=== PATIENT | female | born 1950 | race Hispanic/Latino ===

== ENCOUNTER 2023-07-09 01:08 | Observation (INO) | payer BC, OTHER ==
--- OUTSIDE RECORDS SUMMARY | 2023-07-09 01:11 | XMS REPORT | Continuity of Care Document ---
Author Name Unknown Address [address] [facility] [address] [place] [address] [facility] Address [address] [facility] [address] [place] [address] Care Team Providers Care Warehouse Puller Name Role Phone Rubia Pugh Primary Care Physician [phone] DOMENIC THOMAS Attending Clinician UnavailDR ARAMIS Canas Attending Clinician Unavailable MARLEEN FRANKLIN Attending Clinician Unavailable Rubia Pugh Attending Clinician [phone] RUBIA SANCHEZ Attending Clinician Unavailable LANA Attending Clinician Unavailab le Doctor Unassigned, [facility] Attending Clinician U DOMENIC [place] Admitting Clinician UnavailDR ARAMIS Canas Admitting Clinician Unavailable LANA Admitting Clinician Unavailab lundberg Payers Payer Name Policy Type Policy Number Effective Date Expirati on Date Source [facility] [id number] 2012 00:00:00 BCBS 2 [id number] 2020 00:00:00 Problems Condition Name Condition Details Condition Category Status Onset Date Resolution Date Last Treatment Date Treating Clinician Comments Source Encounter to establish care Encounter to establish care Disease Active 11-24 00:00: 00 [facility] Acute vaginitis Acute vaginitis Disease Active 11-24 00:00: 00 [facility] Essential hypertensi on Essential hypertensi on Disease Active 11-24 00:00: 00 [facility] Candidiasi s of vulva and vagina Candidiasi s of vulva and vagina Disease Active 11-24 00:00: 00 [facility] Allergies, Adverse Reactions, Alerts Allergy Name Allergy Type Status Severity Reaction(s) Onset Date Inactive Date Treating Clinician Comments Source NO KNOWN ALLERGIE S Drug Class Active [facility] Social History Social Habit Start Date Stop Date Quantity Comments Source Exposure to SARS-CoV-2 (event) 2021-11-14 00:00:00 2021-11-24 09:38:00 Not sure [facility] Alcohol intake 2021-11-24 00:00:00 2021-11-24 00:00:00 Ex-drinker (finding) [facility] Tobacco use and exposure 2020-11-17 00:00:00 2020-11-17 00:00:00 Former smokeless tobacco user [facility] Sex Assigned At 1950 00:00:00 1950 00:00:00 [facility] Smoking Status Start Date Stop Date Source Never smoked tobacco [facility] Medications Ordered Medication Name Filled Medication Name Start Date Stop Date Current Medication? Ordering Clinician Indication Dosage Frequency Signature (SIG) Comments Components Source LISINOPRIL 10 mg tablet 01-20 00:00: 00 Yes [id number] TAKE ONE (1) TABLET(S) BY MOUTH ONCE A DAY. [facility] HYDROcodone -ibuprofen (VICOPROFEN ) 7.5-200 mg per tablet 11-24 10:43: 51 11-24 00:00 :00 No 1{tbl} Take 1 Tab by mouth every 8 (eight) hours as needed. [facility] CIPROFLOXAC IN HCL (CIPRO ORAL) 11-24 10:43: 51 11-24 00:00 :00 No Take by mouth. [facility] ATORVASTATI N CALCIUM (ATORVASTAT IN ORAL) 11-24 09:54: 40 Yes Take by mouth. [facility] CODEINE PHOSPHATE/G UAIFENESIN (CODEINE- AIFENESIN ORAL) 11-24 09:54: 40 Yes Take by mouth. [facility] ATORVASTATI N CALCIUM (ATORVASTAT IN ORAL) 11-24 09:54: 40 Yes Take by mouth. [facility] CODEINE PHOSPHATE/G UAIFENESIN (CODEINE- AIFENESIN ORAL) 11-24 09:54: 40 Yes Take by mouth. [facility] ATORVASTATI N CALCIUM (ATORVASTAT IN ORAL) 11-24 09:54: 40 Yes Take by mouth. [facility] CODEINE PHOSPHATE/G UAIFENESIN (CODEINE- AIFENESIN ORAL) 11-24 09:54: 40 Yes Take by mouth. [facility] ATORVASTATI N CALCIUM (ATORVASTAT IN ORAL) 11-24 09:54: 40 Yes Take by mouth. [facility] CODEINE PHOSPHATE/G UAIFENESIN (CODEINE- AIFENESIN ORAL) 11-24 09:54: 40 Yes Take by mouth. [facility] ibuprofen 800 mg tablet 11-24 09:54: 30 Yes 800mg Take 800 mg by mouth. [facility] ACETAMINOPH EN (TYLENOL ARTHRITIS ORAL) 11-24 09:54: 30 Yes Take by mouth. [facility] ibuprofen 800 mg tablet 11-24 09:54: 30 Yes 800mg Take 800 mg by mouth. [facility] ACETAMINOPH EN (TYLENOL ARTHRITIS ORAL) 11-24 09:54: 30 Yes Take by mouth. [facility] ibuprofen 800 mg tablet 11-24 09:54: 30 Yes 800mg Take 800 mg by mouth. [facility] ACETAMINOPH EN (TYLENOL ARTHRITIS ORAL) 0 11-24 09:54: 30 Yes Take by mouth. [facility] ibuprofen 800 mg tablet 11-24 09:54: 30 Yes 800mg Take 800 mg by mouth. [facility] ACETAMINOPH EN (TYLENOL ARTHRITIS ORAL) 11-24 09:54: 30 Yes Take by mouth. [facility] lisinopriL 10 mg tablet 11-24 00:00: 00 Yes [id number] 10mg Take 1 tablet by mouth daily. [facility] fluconazole 150 mg tablet 11-24 00:00: 00 Yes [id number] 150mg Take 1 tablet by mouth every 72 (seventy-t wo) hours. [facility] lisinopriL 10 mg tablet 11-24 00:00: 00 Yes [id number] 10mg Take 1 tablet by mouth daily. [facility] fluconazole 150 mg tablet 11-24 00:00: 00 Yes [id number] 150mg Take 1 tablet by mouth every 72 (seventy-t wo) hours. [facility] lisinopriL 10 mg tablet 11-24 00:00: 00 Yes [id number] 10mg Take 1 tablet by mouth daily. [facility] fluconazole 150 mg tablet 11-24 00:00: 00 Yes [id number] 150mg Take 1 tablet by mouth every 72 (seventy-t wo) hours. [facility] fluconazole 150 mg tablet 11-24 00:00: 00 Yes [id number] 150mg Take 1 tablet by mouth every 72 (seventy-t wo) hours. [facility] lisinopriL 10 mg tablet 11-24 00:00: 00 01-20 00:00 :00 No [id number] 10mg Take 1 tablet by mouth daily. [facility] lisinopriL 10 mg tablet 11-24 00:00: 00 11-24 00:00 :00 No [id number] 10mg Take 1 tablet by mouth daily for 60 days. [facility] fluconazole 150 mg tablet 11-24 00:00: 00 11-24 00:00 :00 No [id number] 150mg Take 1 tablet by mouth every 72 (seventy-t wo) hours for 3 doses. [facility] amoxicillin (TRIMOX) 500 mg capsule 11-18 14:39: 03 Yes 500mg Take 500 mg by mouth 3 (three) times daily. [facility] amoxicillin (TRIMOX) 500 mg capsule 11-18 14:39: 03 Yes 500mg Take 500 mg by mouth 3 (three) times daily. [facility] amoxicillin (TRIMOX) 500 mg capsule 11-18 14:39: 03 Yes 500mg Take 500 mg by mouth 3 (three) times daily. [facility] amoxicillin (TRIMOX) 500 mg capsule 11-18 14:39: 03 Yes 500mg Take 500 mg by mouth 3 (three) times daily. [facility] methylPREDN ISolone (MEDROL, JORGE,) 4 mg tablets 03-15 00:00: 00 Yes 84mg Take 21 tablets by mouth SEE-INSTRU CTIONS. follow package directions [facility] methylPREDN ISolone (MEDROL, JORGE,) 4 mg tablets 03-15 00:00: 00 Yes 84mg Take 21 tablets by mouth SEE-INSTRU CTIONS. follow package directions [facility] methylPREDN ISolone (MEDROL, JORGE,) 4 mg tablets 03-15 00:00: 00 Yes 84mg Take 21 tablets by mouth SEE-INSTRU CTIONS. follow package directions [facility] methylPREDN ISolone (MEDROL, JORGE,) 4 mg tablets 03-15 00:00: 00 Yes 84mg Take 21 tablets by mouth SEE-INSTRU CTIONS. follow package directions [facility] albuterol 90 mcg/actuati on inhaler 11-15 00:00: 00 Yes 2{puff} Inhale 2 Puffs every 4 (four) hours as needed for Wheezing or Shortness of Breath. [facility] codeine-gua ifenesin 10-100 mg/5 mL solution 11-15 00:00: 00 Yes 5mL Take 5 mL by mouth every 6 (six) hours as needed for Cough. [facility] albuterol 90 mcg/actuati on inhaler 11-15 00:00: 00 Yes 2{puff} Inhale 2 Puffs every 4 (four) hours as needed for Wheezing or Shortness of Breath. [facility] codeine-gua ifenesin 10-100 mg/5 mL solution 11-15 00:00: 00 Yes 5mL Take 5 mL by mouth every 6 (six) hours as needed for Cough. [facility] albuterol 90 mcg/actuati on inhaler 11-15 00:00: 00 Yes 2{puff} Inhale 2 Puffs every 4 (four) hours as needed for Wheezing or Shortness of Breath. [facility] codeine-gua ifenesin 10-100 mg/5 mL solution 11-15 00:00: 00 Yes 5mL Take 5 mL by mouth every 6 (six) hours as needed for Cough. [facility] albuterol 90 mcg/actuati on inhaler 11-15 00:00: 00 Yes 2{puff} Inhale 2 Puffs every 4 (four) hours as needed for Wheezing or Shortness of Breath. [facility] codeine-gua ifenesin 10-100 mg/5 mL solution 11-15 00:00: 00 Yes 5mL Take 5 mL by mouth every 6 (six) hours as needed for Cough. [facility] azithromyci n 250 mg tablet 11-15 00:00: 00 11-24 00:00 :00 No 250mg Take 1 tablet by mouth SEE-INSTRU CTIONS. Take 500 mg day 1, then 250 mg days 2 to 5. [facility] meloxicam (MOBIC) 15 mg tablet 08-30 00:00: 00 Yes [id number] 9102 15mg Take 1 Tab by mouth daily. [facility] meloxicam (MOBIC) 15 mg tablet 08-30 00:00: 00 Yes [id number] 9102 15mg Take 1 Tab by mouth daily. [facility] meloxicam (MOBIC) 15 mg tablet 08-30 00:00: 00 Yes [id number] 9102 15mg Take 1 Tab by mouth daily. [facility] meloxicam (MOBIC) 15 mg tablet 08-30 00:00: 00 Yes [id number] 9102 15mg Take 1 Tab by mouth daily. [facility] Vital Signs Vital Name Observation Time Observation Value Comments Lilia parra Systolic blood pressure 2021-11-24 15:09:00 152 mm[Hg] [facility] Diastolic blood pressure 2021-11-24 15:09:00 83 mm[Hg] [place] [facility] Heart rate 2021-11-24 14:54:00 73 /min [facility] Body height 2021-11-24 14:54:00 152.4 cm [facility] Body weight 2021-11-24 14:54:00 104.237 kg [facility] BMI 2021-11-24 14:54:00 44.88 kg/m2 [facility] Oxygen saturation in Arterial blood by Pulse oximetry 2021-11-24 14:54:00 96 /min [facility] Encounters Start Date/Time End Date/Time Encounter Type Admission Type Attending Clinicians Care Facility Care Department Encounter ID Source 2021-04-18 19:11:58 Outpatient DOMENIC DELONG [facility] [id number] [facility] 2017-05-19 06:30:[address] [facility] [id number] [facility] 2023-02-02 00:00:00 2023-02-02 00:00:00 Outpatient MARLEEN FRANKLIN [id number] Saray Alvarez 2022-01-20 00:00:00 2022-01-20 00:00:00 Rubia Hansen [facility] [id number] [facility] 2021-12-29 11:00:00 2021-12-29 11:00:00 Outpatient RUBIA LINDER [facility] [id number] [facility] 2021-12-29 02:04:00 2021-12-29 02:04:00 Outpatient GALE MCELROY [facility] [id number] [facility] 2021-11-25 00:00:00 2021-11-25 00:00:00 Telephone Faiza Counts include 234 beds at the [facility] AME?[facility] [id number] [facility] 2021-11-24 10:00:00 2021-11-24 10:43:42 Outpatient R RUBIA SANCHEZ [facility] [id number] [facility] 2021-11-24 10:00:00 2021-11-24 10:43:42 Outpatient R RUBIA SANCHEZ [facility] [id number] [facility] 2021-11-24 10:00:00 2021-11-24 10:43:42 Office Visit Faiza Counts include 234 beds at the [facility] AME?[facility] [id number] [facility] 2021-11-24 00:00:00 2021-11-24 00:00:00 Telephone Faiza Counts include 234 beds at the [facility] AME?[facility] [id number] [facility] 2021-11-24 00:00:00 2021-11-24 00:00:00 Orders Only Doctor Unassigned, [facility] [id number] [facility] 2020-11-17 09:30:00 2020-11-17 09:30:00 Outpatient R DOMENIC THOMAS [facility] [id number] [facility] 2020-11-09 11:45:00 2020-11-09 11:45:00 Outpatient DOMENIC DELONG [facility] [id number] [facility]
[2023-07-09] MEDS ORDERED: ONDANSETRON 4 MG/2 ML VIAL IV PRN (01:37)
[2023-07-09] MEDS ORDERED: ACETAMINOPHEN 325 MG TABLET PO PRN (01:37)
--- NOTE | 2023-07-09 01:43 | P.HP ---
Certification for Inpatient Patient admitted to: Observation With expected LOS: <2 Midnights Practitioner: I am a practitioner with admitting privileges, knowledge of patient current condition, hospital course, and medical plan of care. Services: Services provided to patient in accordance with Admission requirements found in Title 42 Section 412.3 of the Code of Federal Regulations Patient History Date of Service: 07/09/23 Reason for admission: CHF exacerbation, NSTEMI. History of Present Illness: 73-year-old female patient with a history of prediabetes, hypertension, hyperl ipidemia who came to the emergency room at [facility] for episode of worsening shortness of breath. This been going on for 2 days with associated chest discomfort. Pain is rated 3 out of 10 in intensity nonradiating. She had workup that revealed moderately elevated troponin and features of congestive heart failure so she was transferred to [facility] for care. On arrival patient continued to verbalize some difficulty breathing but she denied overt leg swelling. She had PND and orthopnea symptoms. Chest discomfort was said to be moderate at 3-4 out of 10 in intensity. She was admitted for inpatient care and started on IV diuretic and labs were done. Troponin was found to be elevated at 4000 on initial troponin trend. Allergies No Known Drug Allergies Allergy (Unverified 09/01/20 13:42) Unknown Home Medications: Citalopram [Celexa*] 10 mg PO DAILY 11/12/14 Metformin ER [Glucophage ER*] 500 mg PO BID 11/12/14 lisinopriL [Prinivil*] 10 mg PO BID 11/12/14 Hydrocodone 7.5/APAP 325 [[place] 7.5/325 mg*] 1 tab PO Q4H PRN #50 tab 11/21/14 Rivaroxaban [Xarelto] 10 mg PO DAILY #10 tablet 11/21/14 - Past Medical/Surgical History Diabetic: Yes -: hypertension -: diabetes -: right knee replacement 2010 -: cholecystectomy -: hysterectomy -: arthroscopy left knee - Family History Father -: Stroke - Social History Alcohol use: No CD- Drugs: No Caffeine use: Yes Review of Systems General: Unremarkable Eyes: Unremarkable ENT: Unremarkable Respiratory: Shortness of Breath, SOB with Excertion Cardiovascular: Chest Pain, Orthopnea, Paroxysmal Noc. Dyspnea Gastrointestinal: Unremarkable Genitourinary: Unremarkable Musculoskeletal: Unremarkable Integumentary: Unremarkable Neurological: Unremarkable Lymphatics: Unremarkable Physical Examination - Physical Exam General: Alert, Oriented x3 HEENT: Atraumatic Neck: Supple Respiratory: Normal air movement Cardiovascular: Regular rate/rhythm, Normal S1 S2 Gastrointestinal: Soft and benign Musculoskeletal: No swelling Neurological: Normal speech, Normal strength at 5/5 x4 extr Assessment and Plan - Plan CHF exacerbation: Findings are concerning. Will obtain echocardiogram, start Lasix for diuresis and follow trend of volume status closely. Troponin trend to be continued for management of suspected ACS. Cardiology consultation placed NSTEMI: Troponin was elevated in outpatient hospital and repeat troponin was 4000 on repeat lab in the hospital. Heparin drip has been started for management of ACS. Continue aspirin therapy and as needed morphine for pain control. Will obtain echocardiogram and lipid panel to adjust thyroid lipid therapy as needed. Cardiology has been consulted for management recommendation. History of prediabetes: Will continue of metformin once plan of care for ACS has been finalized. Hypertension: will continue to monitor vital signs per unit protocol and continue antihypertensive medications. Prophylaxis: Heparin drip has been placed for ACS management. CODE STATUS: Full code. Disposition: We will treat suspected ACS and CHF exacerbation and she will be discharged once deemed clinically stable. - Advance Directives Does patient have a Living Will: No Does patient have a Durable POA for Healthcare: No
[2023-07-09] MEDS: FUROSEMIDE 20 MG/ 2ML VIAL IV SCH ×2 (04:22→09:04)
[2023-07-09] MEDS: HEPARIN/D5W 25,000 UNIT/500 ML BAG IV SCH (06:29)
[2023-07-09 08:10] VITALS: BMI 6158.3
[2023-07-09 08:11] LABS: Hematocrit 37.9 % (36.0-45.0); MCV 90.9 fL (80-100); MPV 8.4 fL (7.6-11.3); Platelets 233 thou/uL (152-406); RBC Red Blood Cell Count 4.18 M/uL (3.86-4.86)
[2023-07-09 08:35] LABS: Albumin 3.2 g/dL (3.4-5.0); Bilirubin Total 0.3 mg/dL (0.2-1.0); Magnesium 2.2 mg/dL (1.6-2.4); Potassium 4.1 mEq/L (3.5-5.1); Protein, Total 7.1 g/dL (6.4-8.2)
[2023-07-09] MEDS ORDERED: carvediloL 6.25 MG TAB PO SCH (09:00)
[2023-07-09] MEDS ORDERED: ENOXAPARIN 40 MG/0.4 ML SQ SCH (09:00)
[2023-07-09] MEDS: DULOXETINE 30 MG CAP PO SCH ×2 (09:03→20:23)
[2023-07-09] MEDS: ASPIRIN EC 81 MG TAB PO SCH (09:04)
--- NOTE | 2023-07-09 11:19 | P.PN ---
Date of Service: 07/09/23 Subjective: Pain significantly improved Reports very mild chest pain ROS: 10 point ROS as noted above, otherwise negative Physical exam GEN: Alert, oriented, NAD HEENT: Normal conjunctiva, sclera anicteric CV: Regular rate and rhythm, no edema Pulm: Nonlabored respirations on room air ABD: Soft, nontender, nondistended MSK: No joint tenderness Integumentary: No rashes Neuro: Normal speech, normal affect Vitals reviewed Problem List NSTEMI-suspected ACS Hypertension Prediabetes Plan NSTEMI-suspected ACS Initial troponin at outside hospital 205 Trended up peaking at 7878.7 EKG without STEMI criteria Case discussed with cardiology who recommends cardiac catheterization N.p.o. tonight in anticipation of heart catheterization to be performed 07/10 continue heparin drip, aspirin, statin, carvedilol Hypertension Continue carvedilol Prediabetes Obtain A1c level noncompliant with meds at home VTE: Heparin drip Code: full Dispo: 1 to 2 days Time Spent Managing Pts Care (In Minutes): 35
[2023-07-09] MEDS ORDERED: NA CHLORIDE 0.9% 1,000 ML ONE (13:24)
--- NOTE | 2023-07-09 14:12 | RAD REPORT ---
EXAM DESCRIPTION: CT - Head C Spine Cap Wo Con - 07/09/2023 1:58 pm CLINICAL HISTORY: Trauma, head and neck injury. Chest, abdomen and pelvis pain. PT FALL COMPARISON: No comparisons TECHNIQUE: CT head without contrast. CT cervical spine without contrast with coronal and sagittal reformatted images. CT chest, abdomen and pelvis with coronal and sagittal reformatted images of the spine. All CT scans are performed using dose optimization technique as appropriate and may include automated exposure control or mA/KV adjustment according to patient size. FINDINGS: CT HEAD WITHOUT CONTRAST: No intracranial hemorrhage, hydrocephalus or extra-axial fluid collection. No acute large vascular te rritory infarct. Darrel cisterna magna. The paranasal sinuses and mastoids are clear. The calvarium is intact. CT CERVICAL SPINE WITHOUT CONTRAST: No fracture or subluxation. The prevertebral soft tissues are normal in thickness.Multilevel degenerative changes are present in the spine. Carotid artery calcifications . CT CHEST, ABDOMEN, PELVIS: Thorax: Chest Wall: No abnormal mass Lungs: No acute abnormality. Pleura: No effusions or pneumothorax. Krista/Mediastinum: No lymphadenopathy. Aorta/Pulmonary Arteries: Unremarkable Heart: Normal size. Coronary artery calcifications. Abdomen/Pelvis: Liver: No acute abnormality or suspicious lesions. Biliary: Cholecystectomy Stomach: No significant focal abnormality. Duodenum: No significant focal abnormality. Pancreas: No significant abnormality. Spleen: No significant abnormality. Adrenal: No suspicious lesions. Kidney/ureter: No hydronephrosis. No renal calculi. Retroperitoneum: No retroperitoneal adenopathy. Vascular: No aneurysm. Atherosclerosis. Bowel: No significant focal abnormality. Peritoneum: No ascites or free air. Bladder: Grossly unremarkable. Reproductive: Hysterectomy. Bones: No acute fracture. Other: n/a IMPRESSION: Negative for acute traumatic findings.
[2023-07-09] MEDS ORDERED: CODEINE 30MG/APAP 300MG TAB PO PRN (14:35)
[2023-07-09] MEDS: NA CHLORIDE 0.9% 1,000 ML IV SCH (18:11)
[2023-07-09] MEDS ORDERED: ATORVASTATIN 40 MG TAB PO SCH (21:00)
[2023-07-10 02:27] LABS: Specific Gravity 1.015 (1.005-1.030); Urine Bacteria 20-50 /HPF (<20); Urine Bilirubin NEGATIVE (Negative); Urine Blood Negative (Negative); Urine Clarity Turbid (Clear); Urine Color Light-Yellow (Yellow); Urine Glucose NEGATIVE (Negative); Urine Mucus 1+ /HPF (None Seen); Urine Protein NEGATIVE (Negative); Urine RBC <5 /HPF (None Seen); Urine Urobilinogen Normal (Normal); Urine pH 5.5 (5.0-7.0)
[2023-07-10] MEDS ORDERED: VERAPAMIL HCL 10 MG/4 ML VIAL IV ONE (06:39)
[2023-07-10] MEDS ORDERED: LIDOCAINE 1% 20 ML MDV ONE (06:39)
[2023-07-10] MEDS ORDERED: HEPA 1000U/500MLS 2,000 UNIT/1,000 ML BAG IV ONE (06:39)
[2023-07-10] MEDS ORDERED: FENTANYL CITR 100 MCG/2 ML ONE (06:39)
[2023-07-10] MEDS ORDERED: HEPARIN 5000 UNIT/ML 1 ML VIAL ONE (06:40)
[2023-07-10] MEDS ORDERED: ATROPINE SULF 1 MG/10 ML SYR IV ONE (06:40)
[2023-07-10] MEDS ORDERED: HEPARIN 10,000 UNIT/10 ML VIAL IV ONE (06:40)
[2023-07-10] MEDS ORDERED: MIDAZOLAM HCL 2 MG/2 ML INJ ONE (06:40)
[2023-07-10] MEDS ORDERED: TICAGRELOR 90 MG TABLET PO ONE (06:40)
[2023-07-10] MEDS ORDERED: CLOPIDOGREL 75 MG TABLET ONE (06:41)
[2023-07-10] MEDS ORDERED: ASPIRIN 325 MG TAB ONE (06:41)
[2023-07-10] MEDS ORDERED: NITROGLYCERIN/D5W 25 MG/250 ML BTL IV ONE (06:42)
[2023-07-10] MEDS ORDERED: NA CHLORIDE 0.9% 500 ML ONE (06:43)
[2023-07-10 06:56] LABS: Absolute Lymphocytes (CBC) 3.5 K/uL (0.7-4.9); Hematocrit 36.9 % (36.0-45.0); Lymphocytes % 41.7 % (15.3-44.8); MCV 90.6 fL (80-100); Platelets 211 thou/uL (152-406); RBC Red Blood Cell Count 4.07 M/uL (3.86-4.86)
[2023-07-10 07:21] LABS: Albumin 2.8 g/dL (3.4-5.0); Bilirubin Total 0.4 mg/dL (0.2-1.0); Potassium 3.9 mEq/L (3.5-5.1); Protein, Total 6.3 g/dL (6.4-8.2)
[2023-07-10 07:23] LABS: Thyroid Stimulating Hormone 4.93 uIU/mL (0.358-3.740)
[2023-07-10] MEDS: ASPIRIN EC 81 MG TAB PO SCH (08:37)
[2023-07-10] MEDS: DULOXETINE 30 MG CAP PO SCH (08:37)
[2023-07-10] MEDS ORDERED: CEFTRIAXONE 1,000 MG in NA CHLORIDE 0.9% 50 ML IVPB SCH (09:00)
--- NOTE | 2023-07-10 09:00 | OP ---
Date of Procedure: 07/10/2023 Surgeon: VIVIAN JULIO Procedure Performed: Selective coronary angiogram with left heart catheterization. Indications: [id number]-AT-[id number] myocardial infarction. Access: Right radial artery 6-Qatari closed with TR band. Complications: None. Bleeding: Less than 50 mL. Anesthesia: Total sedation time was 30 minutes. Description Of Procedure: After risks, benefits, alternatives were explained, the patient agreed to procedure and signed informed consent. The patient was brought into cardiac catheterization laborato , prepped and draped in the usual sterile fashion. Then, I accessed right radial artery using pedi atric micropuncture kit, and placed a 6-Qatari Slender sheath and took 5-Qatari [place] 4.0 catheter ov er the J-wire into the aortic root, engaged left main and then, right coronary artery, took standard views and the catheters which over the wire into the LV, measured the LVEDP. Pullback did not record any gradient. Then, I removed the catheter and the sheath and placed TR band with good hemostasis. Findings: 1.Left main is large with distal 80% to 90% stenosis. 2.LAD; proximal 60% stenosis. Then with luminal irregularities throughout the diagonal branches wit h luminal irregularities. 3.Left circumflex. It is large and dominant artery proximal 70% and then there large OM has diffuse proximal 80% and then the circumflex supplies the inferior wall and has 80% stenosis. 4.RCA is a moderate-size vessel, proximal 90%, mid 60%, and the PDA has diffuse 50% stenosis. 5.LVEDP elevated at 19 mmHg. Conclusion: 1.Severe multivessel coronary artery disease including left main. 2.Elevated LVEDP. Condition, transfer for CABG. SR/MODL Voice ID: [id number] Report ID: [id number]
--- NOTE | 2023-07-10 09:27 | CON ---
Date of Consultation: 07/10/2023 Reason For Consultation: Chest pain. History Of Present Illness: A 73-year-old female with history of diabetes and hypertension, who pres ented to the emergency room with chest pain, pressure-like left-sided along with some nausea. Upon a rrival to the emergency room, she was found to have high troponin, chest pain improved with aspirin a nd nitroglycerin, and she was started on heparin drip. Troponin peaked and started coming down. The patient is chest pain free at this moment. She does have significant shortness of breath on exertio n. Past Medical History: Hypertension and diabetes. Medications: Refer to reconciliation sheet for detailed list. Allergies: NO KNOWN DRUG ALLERGIES. Family History: No premature coronary artery disease or cancer. Social History: She does not smoke or drink. Does not use any drugs. Review of Systems: All systems reviewed and they were negative except as mentioned in the HPI. Physical Examination: Vital Signs: Reviewed. Head and Neck: Pupils are equal, reactive to light. Intact eye movements. No JVD. No cervical lym phadenopathy. Neck is supple. Thyroid is not enlarged. Lungs: Clear to auscultation bilaterally. No rhonchi, rales, or crackles. No accessory muscle use. Heart: Regular rate and rhythm. No extra sounds. Abdomen: Soft, nontender. Bowel sounds positive. No organomegaly. No masses or hernia. No rigidi ty or rebound. Extremities: No clubbing, cyanosis. Positive edema. Neurologic: Alert, awake, oriented x3. No acute focal deficits appreciated. Lymph Nodes: No cervical or axillary lymphadenopathy. Investigations: Labs were reviewed. Assessment And Recommendations: 1.Non-ST elevation myocardial infarction. She is n.p.o., on aspirin, heparin drip. Plan for yao ry angiogram to be done this morning. 2.Shortness of breath, likely heart failure. Recommend gentle diuresis. 3.Hypertension. Resume home medications and adjust for blood pressure to be less than 140/90. SR/MODL Voice ID: [id number] Report ID: [id number]
[2023-07-10 11:38] VITALS: O2SAT 95
[2023-07-10] MEDS: NA CHLORIDE 0.9% 1,000 ML IV SCH (11:41)
--- NOTE | 2023-07-10 12:55 | P.PN ---
Date of Service: 07/10/23 Subjective: Pain significantly improved Reports very mild chest pain ROS: 10 point ROS as noted above, otherwise negative Physical exam GEN: Alert, oriented, NAD HEENT: Normal conjunctiva, sclera anicteric CV: Regular rate and rhythm, no edema Pulm: Nonlabored respirations on room air ABD: Soft, nontender, nondistended MSK: No joint tenderness Integumentary: No rashes Neuro: Normal speech, normal affect Vitals reviewed Problem List NSTEMI-suspected ACS Hypertension Prediabetes Near syncope, fall Plan NSTEMI-suspected ACS Initial troponin at outside hospital 205 Trended up peaking at 7878.7 Heart catheterization 07/10/2023 Severe multivessel coronary artery disease including left main Elevated LVEDP Recommendations-transfer for CABG evaluation Hypertension Was not taking beta-elizabeth at home Carvedilol discontinued given episode of low blood pressure, near syncope Prediabetes A1c 6.3 Not on any medications at home Near syncope, fall Had a fall in the hospital on 07/09/2023 Complaint of left arm/shoulder pain Did hit head/had head pain CT head/C-spine/chest abdomen pelvis was performed-no acute traumatic injuries VTE: Heparin drip Code: full Dispo: 1 to 2 days Time Spent Managing Pts Care (In Minutes): 35
[2023-07-10 12:59] VITALS: BP 158/57; TEMP 97.5
--- NOTE | 2023-07-10 13:31 | ECHO ---
HEIGHT: 0 ft 5 in WEIGHT: 219 lb 0 oz DATE OF STUDY: 07/10/[address]: aDni Morin MD 2-DIMENSIONAL: YES M.MODE: YES DOPPLER: YES COLOR FLOW: YES TDS: PORTABLE: YES DEFINITY: BUBBLE STUDY: DIAGNOSIS: PATIENT WITH NON ST ELEVATION MYOCARDIAL INFARCTION AND CONGESTIVE HEART FAILURE CARDIAC HISTORY: CATHERIZATION: NO SURGERY: NO PROSTHETIC VALVE: NO PACEMAKER: NO MEASUREMENTS (cm) DIASTOLIC (NORMALS) SYSTOLIC (NORMALS) IVSd 1.1 (0.6-1.2) LA Diam 2.6 (1.9-4.0) LVEF 55-60% LVIDd 4.0 (3.5-5.7) LVIDs 3.4 (2.0-3.5) %FS 15% LVPWd 1.2 (0.6-1.2) Ao Diam 2.7 (2.0-3.7) 2 DIMENSIONAL ASSESSMENT: RIGHT ATRIUM: NORMAL LEFT ATRIUM: NORMAL RIGHT VENTRICLE: NORMAL LEFT VENTRICLE: NORMAL TRICUSPID VALVE: NORMAL MITRAL VALVE: MITRAL ANNULAR CALCIFICATION WITH MILD MITRAL REGURGITATION PULMONIC VALVE: NORMAL AORTIC VALVE: NORMAL PERICARDIAL EFFUSION: NONE AORTIC ROOT: NORMAL LEFT VENTRICULAR WALL MOTION: NORMAL DOPPLER/COLOR FLOW: MILD MITRAL REGURGITATION COMMENTS: 1. NORMAL LEFT VENTRICULAR EJECTION FRACTION 55-60% 2. NORMAL WALL MOTION 3. GRADE I DIASTOLIC DYSFUNCTION 4. MILD MITRAL REGURGITATION TECHNOLOGIST: CHAU SPAULDING
[2023-07-10] MEDS: HEPARIN/D5W 25,000 UNIT/500 ML BAG IV SCH (14:47)
--- NOTE | 2023-07-10 15:04 | P.DS ---
Admission Date: 07/09/23 Discharge Date: 07/10/23 Disposition: TRANSFER TO [facility] Comment: [facility] ED Discharge Condition: FAIR Reason for Admission: CHF exacerbation, NSTEMI. Consultations: Cardiology-Dr. Sevilla Procedures: Heart catheterization 07/10/2023 Severe multivessel coronary artery disease including left main Elevated LVEDP Recommendations-transfer for CABG evaluation Brief History of Present Illness: 73-year-old female patient with a history of prediabetes, hypertension, hyperlipidemia who came to the emergency room at [facility] for episode of worsening shortness of breath. This been going on for 2 days with associated chest discomfort. Pain is rated 3 out of 10 in intensity nonradiating. She had workup that revealed moderately elevated troponin and features of congestive heart failure so she was transferred to [facility] for care. On arrival patient continued to verbalize some difficulty breathing but she denied overt leg swelling. She had PND and orthopnea symptoms. Chest discomfort was said to be moderate at 3-4 out of 10 in intensity. She was a dmitted for inpatient care and started on IV diuretic and labs were done. Troponin was found to be elevated at 4000 on initial troponin trend. Problem List Hospital Course: Problem List NSTEMI-secondary to severe multivessel CAD Hypertension Prediabetes Near syncope, fall Patient was admitted to the hospital for chest pain, NSTEMI. She was on a heparin drip, had a heart catheterization performed 07/10/2023 which showed severe multivessel coronary artery disease including the left main, elevated LVEDP. Cardiology recommended transfer to tertiary center for CABG. Patient is excepted to [facility] today for CABG evaluation. Of note patient did have a fall during her hospitalization here and was complaining of left arm/shoulder pain as well as head pain. She had a CT scan of her head/C-spine/chest abdomen pelvis which was negative for acute findings. She is to continue with plan of care at [facility] with possible CABG. Vital Signs/Physical Exam: Temp Pulse Resp BP Pulse Ox 97.5 F 67 18 158/57 H 95 07/10/23 12:00 07/10/23 12:00 07/10/23 12:00 07/10/23 12:00 07/10/23 12:00 General: Alert, In no apparent distress, Oriented x3 HEENT: Atraumatic, PERRLA Neck: Supple, JVD not distended Respiratory: Clear to auscultation bilaterally, Normal air movement Cardiovascular: Regular rate/rhythm, Normal S1 S2 Gastrointestinal: Normal bowel sounds, No tenderness Musculoskeletal: No tenderness Integumentary: No rashes Neurological: Normal speech, Normal tone, Normal affect Laboratory Data at Discharge: WBC 8.50 thou/uL (4.3-10.9) 07/10/23 06:47 Hgb 12.3 g/dL (12.0-15.0) 07/10/23 06:47 Hct 36.9 % (36.0-45.0) 07/10/23 06:47 Plt Count 211 thou/uL (152-406) 07/10/23 06:47 APTT 85.9 SECONDS (24.3-36.9) H 07/10/23 06:47 Sodium 140 mEq/L (136-145) 07/10/23 06:47 Potassium 3.9 mEq/L (3.5-5.1) 07/10/23 06:47 BUN 23 mg/dL (7-18) H 07/10/23 06:47 Creatinine 0.84 mg/dL (0.55-1.02) 07/10/23 06:47 Glucose 130 mg/dL (74-106) H 07/10/23 06:47 Magnesium 2.2 mg/dL (1.6-2.4) 07/09/23 07:58 Total Bilirubin 0.4 mg/dL (0.2-1.0) 07/10/23 06:47 AST 30 U/L (15-37) 07/10/23 06:47 ALT 26 U/L (13-56) 07/10/23 06:47 Alkaline Phosphatase 74 U/L (45-117) D 07/10/23 06:47 Triglycerides 164 mg/dL (<150) H 07/10/23 06:47 Cholesterol 222 mg/dL (<200) H 07/10/23 06:47 HDL Cholesterol 56 mg/dL (40-60) 07/10/23 06:47 Cholesterol/HDL Ratio 3.96 07/10/23 06:47 Home Medications: Citalopram [Celexa*] 10 mg PO DAILY 11/12/14 Metformin ER [Glucophage ER*] 500 mg PO BID 11/12/14 lisinopriL [Prinivil*] 10 mg PO BID 11/12/14 Hydrocodone 7.5/APAP 325 [[place] 7.5/325 mg*] 1 tab PO Q4H PRN #50 tab 11/21/14 Rivaroxaban [Xarelto] 10 mg PO DAILY #10 tablet 11/21/14 Physician Discharge Instructions: Patient was admitted to the hospital for chest pain, NSTEMI. She was on a heparin drip, had a heart catheterization performed 07/10/2023 which showed severe multivessel coronary artery disease including the left main, elevated LVEDP. Cardiology recommended transfer to tertiary center for CABG. Patient is excepted to [facility] today for CABG evaluation. Of note patient did have a fall during her hospitalization here and was complaining of left arm/shoulder pain as well as head pain. She had a CT scan of her head/C-spine/chest abdomen pelvis which was negative for acute findings. She is to continue with plan of care at [facility] with possible CABG. Diet: AHA Activity: Fall precautions Time spent managing pt's care (in minutes): 30
--- NOTE | 2023-07-10 16:54 | EKG ---
Test Date: 2023-07-09 Test Time: 05:02:22 Ordnance Mechanic: KINA MEASUREMENT RESULTS: Intervals: Rate: 65 MD: 138 QRSD: 90 QT: 466 QTc: 484 [place]: P: 35 MD: 138 QRS: -8 T: 29 INTERPRETIVE STATEMENTS: Normal sinus rhythm Normal ECG Compared to ECG 07/09/2023 05:01:09 Ventricular premature complex(es) no longer present Electronically Signed On 07-10-23 16:51:48 SOLAR RESOURCE ASSESSOR by Ulysses Sevilla
--- NOTE | 2023-07-10 16:54 | EKG ---
Test Date: 2023-07-09 Test Time: 10:28:28 City Editor: DEZ Nix MEASUREMENT RESULTS: Intervals: Rate: 64 IN: 142 QRSD: 92 QT: 478 QTc: 493 [place]: P: 34 IN: 142 QRS: -17 T: -3 INTERPRETIVE STATEMENTS: Normal sinus rhythm Nonspecific T wave abnormality Prolonged QT Abnormal ECG Compared to ECG 10/27/2014 10:35:36 T-wave abnormality now present Prolonged QT interval now present Sinus bradycardia no longer present Electronically Signed On 07-10-23 16:51:36 DIRECTOR OF SPECIAL SERVICES by Ulysses Sevilla
--- NOTE | 2023-07-10 16:55 | EKG ---
Test Date: 2023-07-09 Test Time: 05:01:09 Supervisor [employer]: KINA MEASUREMENT RESULTS: Intervals: Rate: 60 AL: 138 QRSD: 92 QT: 466 QTc: 466 [place]: P: 31 AL: 138 QRS: -11 T: 30 INTERPRETIVE STATEMENTS: Sinus rhythm with occasional premature ventricular complexes Otherwise normal ECG Compared to ECG 10/27/2014 10:35:36 Ventricular premature complex(es) now present Sinus bradycardia no longer present Electronically Signed On 07-10-23 16:51:51 ELECTRIC TRUCK CRANE OPERATOR by Ulysses Sevilla
== END 2023-07-10 15:17 | disposition short-term general hospital (02) ==
LOC: INTOOBSV 01:08 → 2ND 01:08
PROVIDERS: ADMIT Internal Medicine Nephrology; ATTEND Hospitalist
PROC: 4A023N7 Measurement of Cardiac Sampling and Pressure, Left Heart, Percutaneous Approach (ICD-10-PCS; principal; 2023-07-10)
PROC: B2111ZZ Fluoroscopy of Multiple Coronary Arteries using Low Osmolar Contrast (ICD-10-PCS; 2023-07-10)
DX: I21.4 Non-ST elevation (NSTEMI) myocardial infarction (principal); I25.10 Atherosclerotic heart disease of native coronary artery without angina pectoris; I11.0 Hypertensive heart disease with heart failure; I50.9 Heart failure, unspecified; E78.5 Hyperlipidemia, unspecified; R73.03 Prediabetes; R55 Syncope and collapse; M79.602 Pain in left arm; M25.512 Pain in left shoulder; R51.9 Headache, unspecified; W19.XXXA Unspecified fall, initial encounter; Y92.239 Unspecified place in hospital as the place of occurrence of the external cause; Z91.148 Patient's other noncompliance with medication regimen for other reason; Z79.84 Long term (current) use of oral hypoglycemic drugs; Z79.899 Other long term (current) drug therapy; Z90.49 Acquired absence of other specified parts of digestive tract; Z90.710 Acquired absence of both cervix and uterus; Z82.3 Family history of stroke
CPT/HCPCS: 93005 ×3; 93306; 87088; 85025; 81001; 87086; 36415 ×2; 83735; 80061; 82947 ×6; 85730 ×5; 84443; 87077 ×2; 87186 ×2; 83036; 85027; 84484 ×3; 84439; 80053 ×2; 70450; 71250; 72125; 93458; 76937; C1893; Q9966; J1644; J1940 ×2; J2001; J2250; J3010; G0378 ×3; J7040; J7030 ×2; J0696; G0379; 99152; 99153; J0461